=== PATIENT | female | born 1990 ===

== ENCOUNTER 2018-10-20 13:20 | Outpatient (CLI) | payer OTHER ==
--- NOTE | 2018-10-20 14:30 | ULT ---
US Pelvic W Doppler History: [Irregular menses] Comparison: None. Findings: Real-time grayscale, color, and spectral analysis of the pelvis was performed transabdomina l approach. Uterus measures 8.4 x 4.7 x 3.7 cm. Images thickness is 9 mm. Right ovary measures 3.7 x 2.6 x 2.3 cm and the left ovary measures 3.5 x 1.9 x 1.8 cm. No free fluid within the pelvis. Adequate vascular flow to both ovaries. Impression: Normal examination of the pelvis.
== END 2018-10-20 13:21 | disposition home or self-care (01) ==
LOC: BICULT 13:20
PROVIDERS: ATTEND Physician Assistant
DX: N92.6 Irregular menstruation, unspecified (principal); N94.6 Dysmenorrhea, unspecified
CPT/HCPCS: 76856; 93976

== ENCOUNTER 2020-03-13 09:42 | Outpatient (CLI) | payer OTHER ==
[2020-03-13 18:21] LABS: SARS-CoV-2 MS2 Positive; SARS-CoV-2 N Gene Positive; SARS-CoV-2 S Gene Positive; SARS-CoV-2 by NAA DETECTED (NotDetected); SARS-CoV-2 orf1ab Positive
== END 2020-03-13 09:43 | disposition home or self-care (01) ==
LOC: LABBT 09:42
PROVIDERS: ATTEND Obstetrics & Gynecology
DX: U07.1 COVID-19 (principal)
CPT/HCPCS: 87635; U0003

== ENCOUNTER 2020-03-16 19:30 | Inpatient (IN) | payer OTHER ==
[~2020-03-16 19:30] MED LIST: Bupivacaine 0.25% HCL 30 ML VIAL ONE; EPHEDRINE 25 MG/5 ML SYRINGE ONE
[2020-03-16] MEDS ORDERED: Lidocaine 1% (PF) 30 ML VIAL SC PRN (20:57)
[2020-03-16] MEDS ORDERED: hydrALAZINE 20 MG/ML VIAL SLOW IVP PRN (20:57)
[2020-03-16] MEDS ORDERED: Promethazine HCl 25 MG/ML VIAL IM PRN (20:57)
[2020-03-16] MEDS ORDERED: NS w/ Oxytocin 10 units 500 ML IV SCH ×2 (20:57)
[2020-03-16] MEDS ORDERED: HYDROcodone/Acetaminophen 5/325 mg Tablet PO PRN ×2 (20:57)
[2020-03-16] MEDS ORDERED: NS / Oxytocin 40 units/1000ml 1,000 ML IV PRN (20:57)
[2020-03-16] MEDS ORDERED: Ibuprofen 800 MG TAB PO PRN (20:57)
[2020-03-16] MEDS ORDERED: Ondansetron PF 4 MG/2 ML Vial IVP PRN (20:57)
[2020-03-16] MEDS ORDERED: Butorphanol Tartrate 1 MG/ML VIAL SLOW IVP PRN (20:57)
[2020-03-16 21:14] VITALS: BMI 23.8
[2020-03-16] MEDS ORDERED: Misoprostol 100 MCG TAB VAG SCH (21:15)
[2020-03-16] MEDS: Lactated Ringer's 1,000 ML IV SCH (21:29)
[2020-03-16] MEDS: Misoprostol 100 MCG TAB VAG SCH (21:29)
[2020-03-16 21:36] LABS: Hemoglobin 10.5 g/dL (12.0-16.0); Mean Corpuscular HGB CONC 33.7 g/dL (32.0-36.0); Mean Corpuscular Hemoglobin 28.4 pg (27.0-31.0); Mean Corpuscular Volume 84.4 fL (78.0-98.0); Mean Platelet Volume 8.5 fL (7.4-10.4); Platelet Count 209 thou/uL (130-400); RBC Distribution Width 13.5 % (11.5-14.5); Red Blood Cell (RBC) Count 3.69 mill/uL (4.20-5.40); White Blood Cell (WBC) Count 7.9 thou/uL (4.8-10.8)
[2020-03-16 22:13] LABS: Syphilis Antibody Nonreactive (Nonreactive); Syphilis Antibody Index 0.03 S/CO (<1.00 Non-Reactive)
[2020-03-16 22:49] LABS: Hep B Surf Ag Non-Reactive S/CO (NonReactive)
[2020-03-17] MEDS: Misoprostol 100 MCG TAB VAG SCH (04:15)
[2020-03-17] MEDS: Lactated Ringer's 1,000 ML IV SCH ×2 (04:15→09:11)
[2020-03-17] MEDS ORDERED: Fentanyl 4 mcg/Bup 0.1% Cadd 100 ML ONE (07:16)
--- NOTE | 2020-03-17 07:49 | PDOC.LDHP ---
Labor and Delivery H&P Chief complaint: scheduled induction (41 week IOL) HPI: Pt presents for IOL @ 41 weeks, asymptomatic C19 positive on preprocedure testing. Current gestational age (weeks): 41 Due date: 03/10/20 Dating criteria: last menstrual period, first trimester ultrasound Grav: 2 Para: 0 Current complications: none Past Medical History: scoliosis Current medications: pre- vitamins, other (zofran PRN) Previous surgical history: none Allergies/Adverse Reactions: Allergies Allergy/AdvReac Type Severity Reaction Status Date / Time tramadol AdvReac Mild Nausea Verified 03/16/20 21:02 TEA TREE OIL AdvReac Uncoded 03/16/20 21:02 Social history: none - Physical Exam Vital signs reviewed and normal: yes General: breathing through contractions Heart: RRR Lungs: CTAB Abdomen: gravid Extremeties: no edema FHT: category 1 - Vaginal Exam cm dilated: 2 (RN exam at 0630) Effacement: 75% Station: 1+ - OB Labs Blood type: O RH: positive Antibody Screen: negative HIV: negative RPR: negative HEPSAg: negative 1 hour GCT: negative GBS: negative Urine drug screen: negative Rubella: non-immune Additional Labs: C19 positive on prepreprocedure screen - Assessment L&D Assessment: medically indicated induction (41 weeks IOL) - Plan Plan: admit to L&D, cervical ripening, labor augmentation if indicated, informed consent obtained, anesthesia consult for pain management -: Plan for AROM after patient epidural placed. Pt requests for post delivery reviewed (skin to skin, delayed HepB and delayed bath).
[2020-03-17] MEDS ORDERED: Lactated Ringer's 500 ML IV PRN (09:09)
[2020-03-17] MEDS ORDERED: Ondansetron PF 4 MG/2 ML Vial IVP PRN ×2 (09:09→12:49)
[2020-03-17] MEDS ORDERED: Naloxone HCl 0.4 mg/ml Vial IVP PRN ×2 (09:09)
[2020-03-17] MEDS ORDERED: diphenhydrAMINE 50 MG/ML VIAL IVP PRN (09:09)
[2020-03-17] MEDS ORDERED: EPHEDRINE 25 MG/5 ML SYRINGE SLOW IVP PRN (09:09)
[2020-03-17] MEDS ORDERED: Promethazine HCl 25 MG/ML VIAL IM PRN ×2 (09:09→12:49)
[2020-03-17] MEDS ORDERED: Acetaminophen 325 MG TAB PO PRN (09:09)
[2020-03-17] MEDS ORDERED: Communication Order-Pharmacy FS SCH (09:15)
[2020-03-17] MEDS ORDERED: Fentanyl 4 mcg/Bupivacaine 0.1% Cassette 100 ML EPIDURAL SCH (09:15)
[2020-03-17] MEDS ORDERED: Tranexamic Acid 1,000 MG/10 ML VIAL ONE (11:00)
--- NOTE | 2020-03-17 11:10 | PDOC.OPDEL ---
OB Operative/Delivery Note Delivery Dr/Surgeon: Chris Pre-Delivery Diagnosis: medically indicated induction (41 weeks) Procedure/Post Delivery Dx: spontaneous vaginal delivery Weeks gestation: 41 Anesthesia: epidural - Findings A Sex: male - Additional Findings/Plan Placenta delivered: spontaneous Repaired Obstetrical Laceration: 2nd degree Estimated blood loss: 500ml Compilations/Other Findings: increased PP bleeding despite uterine tone, improved w TXA x 1 dose loose nuchal reduced at perineum Post delivery plan: routine recovery
[2020-03-17] MEDS ORDERED: Milk Of Magnesia 30 ML UDCUP PO PRN (12:49)
[2020-03-17] MEDS ORDERED: NS / Oxytocin 40 units/1000ml 1,000 ML IV SCH (12:49)
[2020-03-17] MEDS ORDERED: Adacel (T-DAP) 0.5 ML SYRINGE IM ONE (12:49)
[2020-03-17] MEDS ORDERED: Lanolin Ointment 7 GM TUBE TOP PRN (12:49)
[2020-03-17] MEDS ORDERED: Preparation H Ointment 28 GM TUBE PR PRN (12:49)
[2020-03-17] MEDS ORDERED: HYDROcodone/Acetaminophen 5/325 mg Tablet PO PRN ×2 (12:49)
[2020-03-17] MEDS ORDERED: diphenhydrAMINE 25 MG CAP PO PRN (12:49)
[2020-03-17] MEDS ORDERED: Bisacodyl 10 MG SUPP PR PRN (12:49)
[2020-03-17] MEDS ORDERED: Benzocaine-Menthol 82.5 ML CAN TOP PRN (12:49)
[2020-03-17] MEDS ORDERED: hydrALAZINE 20 MG/ML VIAL SLOW IVP PRN (12:49)
[2020-03-17] MEDS: Ibuprofen 800 MG TAB PO SCH ×2 (15:08→20:29)
[2020-03-17] MEDS: Ferrous Sulfate 325 MG TAB PO SCH (18:56)
[2020-03-17] MEDS: Docusate Calcium (SURFAK) 240 MG CAP PO SCH (20:29)
[2020-03-18] MEDS: Ibuprofen 800 MG TAB PO SCH ×2 (05:21→13:39)
[2020-03-18 06:02] LABS: Hemoglobin 9.9 g/dL (12.0-16.0)
--- NOTE | 2020-03-18 08:02 | PDOC.PP ---
Post Progress Note Post Day #: 1 Subjective: doing well, minimal lochia and discomfort, would like to DC home today PO intake tolerated: yes Flatus: yes Ambulation: yes Vital Signs (12 hours) Temp Pulse Resp BP Pulse Ox 03/18/20 05:31 97.9 F 66 16 113/64 98 03/18/20 00:05 98.0 F 66 16 103/68 03/17/20 20:44 67 14 107/60 Weight Weight 161 lb - Physical Examination General: NAD Respiratory: non-labored breathing Abdominal: no distention Fundus firm & at: below umb Skin: no rash Neurological: no gross focal deficits Psychiatric: A&Ox3, normal affect Result Diagrams: 03/18/20 05:44 Additional Labs: Post Labs Hep Bs Antigen Non-Reactive S/CO (NonReactive) 03/16/20 21:20 Blood Type O POSITIVE 03/16/20 23:04 (1) 41 weeks gestation of Code(s): Z3A.41 - 41 WEEKS GESTATION OF Status: Acute (2) COVID-19 virus detected Code(s): U07.1 - COVID-19 Status: Acute (3) Vaginal delivery Code(s): O80 - ENCOUNTER FOR FULL-TERM UNCOMPLICATED DELIVERY Status: Acute - Assessment/Plan PPD1 doing well, asymptomatic to C19+ test, plan for DC when baby DC. Continue iron/PNV for asymptomatic anemia.
[2020-03-18] MEDS ORDERED: Prenatal Vitamin 1 TAB PO SCH (09:00)
[2020-03-18] MEDS: Ferrous Sulfate 325 MG TAB PO SCH (09:25)
[2020-03-18] MEDS: Docusate Calcium (SURFAK) 240 MG CAP PO SCH (09:25)
[2020-03-18 11:37] VITALS: BP 125/75; TEMP 97.9
== END 2020-03-18 13:59 | disposition home or self-care (01) | DRG 805 ==
LOC: L&D 20:11 → 3SW 03-17 14:30
PROVIDERS: ADMIT Obstetrics & Gynecology; ATTEND Obstetrics & Gynecology
PROC: 8E0ZXY6 Isolation (ICD-10-PCS; 2020-03-16)
PROC: 10E0XZZ Delivery of Products of Conception, External Approach (ICD-10-PCS; principal; 2020-03-17)
PROC: 10907ZC Drainage of Amniotic Fluid, Therapeutic from Products of Conception, Via Natural or Artificial Opening (ICD-10-PCS; 2020-03-17)
PROC: 3E033VJ Introduction of Other Hormone into Peripheral Vein, Percutaneous Approach (ICD-10-PCS; 2020-03-17)
PROC: 3E0P7VZ Introduction of Hormone into Female Reproductive, Via Natural or Artificial Opening (ICD-10-PCS; 2020-03-17)
DX: O69.1XX0 Labor and delivery complicated by cord around neck, with compression, not applicable or unspecified (principal); U07.1 COVID-19; Z37.0 Single live birth; O98.52 Other viral diseases complicating childbirth; O48.0 Post-term pregnancy; Z3A.41 41 weeks gestation of pregnancy; O70.1 Second degree perineal laceration during delivery
CPT/HCPCS: 36415; 36600; 51702; 85014; 85018; 85027; 86780; 86850; 86900; 86901; 87340; S0020